=== PATIENT | male | born 1945 | race Two or more races ===

== ENCOUNTER 2018-11-28 01:17 | Inpatient (IN) | payer OTHER, SELFPAY ==
[~2018-11-28] VITALS: Ht 170.2 cm; Wt 107.2 kg
[2018-11-28 01:48] LABS: BASOPHILS # (AUTO) 0.15 x10^3/uL (0-0.1); BASOPHILS % (AUTO) 1 % (0-1); EOSINOPHILS # (AUTO) 0.77 x10^3/uL (0-0.4); EOSINOPHILS % (AUTO) 7 % (1-7); LYMPHOCYTES # (AUTO) 2.44 x10^3/uL (1-3.4); LYMPHOCYTES % (AUTO) 21 % (22-44); MD NO; MEAN CORPUSCULAR HEMOGLOBIN 32.6 pg (27.5-34.5); MEAN CORPUSCULAR HGB CONC 33.2 g/dL (33.2-36.2); MEAN CORPUSCULAR VOLUME 98.2 fL (81-97); MEAN PLATELET VOLUME 7.9 fL (7.4-10.4); MONOCYTES # (AUTO) 1.19 x10^3/uL (0.2-0.8); MONOCYTES % (AUTO) 10 % (2-9); NEUTROPHILS # (AUTO) 7.17 x10^3/uL (1.8-6.8); NEUTROPHILS % (AUTO) 61 % (42-75); PLATELET COUNT 203 x10^3/uL (130-400); RED BLOOD COUNT 4.82 x10^6/uL (4.38-5.82); RED CELL DISTRIBUTION WIDTH 15.3 % (9.4-14.8)
[2018-11-28] MEDS ORDERED: METO50TA82 PO (01:53)
[2018-11-28] MEDS ORDERED: GLIP5TAB10 PO (01:53)
[2018-11-28] MEDS ORDERED: ALLO300T PO (01:53)
[2018-11-28] MEDS ORDERED: AMIO100T4 PO (01:53)
[2018-11-28] MEDS ORDERED: FURO40TA6 PO (01:53)
[2018-11-28 01:59] LABS: ALANINE AMINOTRANSFERASE 37 U/L (12-78); ALBUMIN 3.9 g/dL (3.4-5.0); ANION GAP 8 mmol/L (5-15); CALCIUM 8.9 mg/dL (8.5-10.1); CHLORIDE 99 mmol/L (98-107); CREATININE 3.57 mg/dL (0.7-1.3)
[2018-11-28 02:04] LABS: ALKALINE PHOSPHATASE 55 U/L (45-117); BILIRUBIN,TOTAL 0.6 mg/dL (0.2-1.0); TOTAL PROTEIN 7.9 g/dL (6.4-8.2)
[2018-11-28 02:05] LABS: TROPONIN I 0.192 ng/mL (0.000-0.045)
--- NOTE | 2018-11-28 02:18 | NUR ---
PT HERE FOR BRADICARDIA AND SOB. PT UNABLE TO LAY DOWN X 2 DAYS HR BETWEEN 33-48. BP AND OTHER VSS. MD AWARE OF HR. PT IN NAD. FAMILY AT BEDSIDE. CALL LIGHT IN REACH
[2018-11-28 03:12] VITALS: BP 150/68
[2018-11-28] MEDS ORDERED: LACTATED RINGERS 1,000 ML IV SCH (05:00)
[2018-11-28] MEDS ORDERED: ONDANSETRON 2MG/ML, 2ML IVPush PRN (05:00)
[2018-11-28 05:16] LABS: HEMOGLOBIN A1C 9.7 % (4.2-6.3)
[2018-11-28 07:00] VITALS: BP 112/59
[2018-11-28] MEDS: INSULIN LISPRO 100 UNITS/ML, PEN SQ-INSULIN SCH ×4 (07:00→22:01)
[2018-11-28 07:59] LABS: INTERNATIONAL NORMALIZED RATIO 1.14 (0.93-1.1); PROTHROMBIN TIME 11.9 Seconds (9.6-11.5)
[2018-11-28 08:19] LABS: CHOL/HDL RATIO 4.8; CHOLESTEROL, TOTAL 121 mg/dL (140-239); HDL CHOL % 21 % (26-37); HDL CHOLESTEROL (DIRECT) 25 mg/dL (40-60); LDL CHOLESTEROL,CALCULATED 69 mg/dL (54-169); LDL/HDL RATIO 2.8 (0.5-3.0); TRIGLYCERIDES 133 mg/dL (50-200); TROPONIN I 0.183 ng/mL (0.000-0.045); VLDL CHOLESTEROL 27 mg/dL (0-25)
[2018-11-28] MEDS ORDERED: ATROPINE SYRINGE 0.1 MG/ML, 10ML ONE (11:36)
[2018-11-28 11:38] VITALS: BP 135/66
[2018-11-28] MEDS ORDERED: WARF7.5T46 PO (13:02)
[2018-11-28] MEDS ORDERED: HYDR-3341 PO (13:02)
[2018-11-28 14:08] VITALS: BP 164/83
[2018-11-28 14:38] LABS: TROPONIN I 0.178 ng/mL (0.000-0.045)
[2018-11-28] MEDS ORDERED: WARFARIN 5 MG TABLET PO-COUM SCH (18:00)
[2018-11-28 19:49] VITALS: BP 176/80
[2018-11-28 21:43] VITALS: BP 162/95
[2018-11-28] MEDS ORDERED: AMIO200T42 PO (21:55)
[2018-11-28] MEDS ORDERED: ALLO100T30 PO (21:55)
[2018-11-28] MEDS: DIPHENHYDRAMINE 25 MG CAPSULE PO PRN (23:14)
[2018-11-29] VITALS (7 sets, daily range): BP systolic 136–201; BP diastolic 60–93
[2018-11-29 06:42] LABS: INTERNATIONAL NORMALIZED RATIO 1.2 (0.93-1.1); PROTHROMBIN TIME 12.5 Seconds (9.6-11.5)
[2018-11-29] MEDS: INSULIN LISPRO 100 UNITS/ML, PEN SQ-INSULIN SCH ×4 (07:53→21:08)
[2018-11-29] MEDS ORDERED: REGADENOSON 0.4 MG/5 ML SYRINGE ONE (08:54)
[2018-11-29] MEDS: AMLODIPINE 5 MG TABLET PO SCH (15:02)
[2018-11-29] MEDS: hydrALAzine 20 MG/ML, 1ML IVPush PRN (16:33)
[2018-11-29] MEDS ORDERED: WARFARIN 7.5 MG TABLET PO-COUM ONE (18:00)
[2018-11-30] MEDS: DIPHENHYDRAMINE 25 MG CAPSULE PO PRN ×2 (01:24→20:23)
[2018-11-30 02:59] VITALS: BP 178/75
[2018-11-30 03:23] VITALS: BP 150/68
[2018-11-30 06:39] LABS: BASOPHILS # (AUTO) 0.06 x10^3/uL (0-0.1); BASOPHILS % (AUTO) 1 % (0-1); EOSINOPHILS # (AUTO) 0.77 x10^3/uL (0-0.4); EOSINOPHILS % (AUTO) 9 % (1-7); LYMPHOCYTES # (AUTO) 1.77 x10^3/uL (1-3.4); LYMPHOCYTES % (AUTO) 20 % (22-44); MD NO; MEAN CORPUSCULAR HGB CONC 32.7 g/dL (33.2-36.2); MEAN CORPUSCULAR VOLUME 97.9 fL (81-97); MEAN PLATELET VOLUME 7.8 fL (7.4-10.4); MONOCYTES # (AUTO) 1.13 x10^3/uL (0.2-0.8); MONOCYTES % (AUTO) 13 % (2-9); NEUTROPHILS # (AUTO) 5.01 x10^3/uL (1.8-6.8); NEUTROPHILS % (AUTO) 57 % (42-75); PLATELET COUNT 174 x10^3/uL (130-400); RED BLOOD COUNT 4.49 x10^6/uL (4.38-5.82)
[2018-11-30 06:50] LABS: INTERNATIONAL NORMALIZED RATIO 1.22 (0.93-1.1); PROTHROMBIN TIME 12.7 Seconds (9.6-11.5)
[2018-11-30 06:55] LABS: ANION GAP 6 mmol/L (5-15); CALCIUM 8.5 mg/dL (8.5-10.1); CHLORIDE 106 mmol/L (98-107)
[2018-11-30 06:57] LABS: CREATININE 2.68 mg/dL (0.7-1.3)
[2018-11-30 07:00] VITALS: BP 169/81
[2018-11-30] MEDS: AMLODIPINE 5 MG TABLET PO SCH ×3 (08:07→20:23)
[2018-11-30] MEDS: INSULIN LISPRO 100 UNITS/ML, PEN SQ-INSULIN SCH ×4 (08:08→20:34)
[2018-11-30 14:10] VITALS: BP 167/79
[2018-11-30] MEDS ORDERED: SIMV40TA3 PO (14:24)
[2018-11-30] MEDS ORDERED: METO50TA6 PO (14:24)
[2018-11-30] MEDS ORDERED: WARFARIN 7.5 MG TABLET PO-COUM ONE (18:00)
[2018-11-30 19:40] VITALS: BP 159/79
[2018-11-30] MEDS: ACETAMINOPHEN 325 MG TABLET PO PRN (23:41)
[2018-12-01] VITALS (7 sets, daily range): BP systolic 130–171; BP diastolic 57–84
[2018-12-01 05:36] LABS: BASOPHILS # (AUTO) 0.06 x10^3/uL (0-0.1); BASOPHILS % (AUTO) 1 % (0-1); EOSINOPHILS # (AUTO) 0.86 x10^3/uL (0-0.4); EOSINOPHILS % (AUTO) 9 % (1-7); LYMPHOCYTES # (AUTO) 1.77 x10^3/uL (1-3.4); LYMPHOCYTES % (AUTO) 19 % (22-44); MD NO; MEAN CORPUSCULAR HEMOGLOBIN 32.4 pg (27.5-34.5); MEAN CORPUSCULAR HGB CONC 32.7 g/dL (33.2-36.2); MEAN CORPUSCULAR VOLUME 99.1 fL (81-97); MONOCYTES # (AUTO) 1.12 x10^3/uL (0.2-0.8); MONOCYTES % (AUTO) 12 % (2-9); NEUTROPHILS # (AUTO) 5.74 x10^3/uL (1.8-6.8); NEUTROPHILS % (AUTO) 60 % (42-75); PLATELET COUNT 177 x10^3/uL (130-400); RED BLOOD COUNT 4.45 x10^6/uL (4.38-5.82); RED CELL DISTRIBUTION WIDTH 15.2 % (9.4-14.8)
[2018-12-01 05:39] LABS: INTERNATIONAL NORMALIZED RATIO 1.42 (0.93-1.1); PROTHROMBIN TIME 14.7 Seconds (9.6-11.5)
[2018-12-01 05:45] LABS: ANION GAP 5 mmol/L (5-15); CALCIUM 8.7 mg/dL (8.5-10.1); CHLORIDE 107 mmol/L (98-107); CREATININE 2.45 mg/dL (0.7-1.3)
[2018-12-01] MEDS: hydrALAzine 20 MG/ML, 1ML IVPush PRN (07:49)
[2018-12-01] MEDS: INSULIN LISPRO 100 UNITS/ML, PEN SQ-INSULIN SCH ×4 (07:49→21:00)
[2018-12-01] MEDS: AMLODIPINE 5 MG TABLET PO SCH ×2 (07:49→21:32)
[2018-12-01] MEDS ORDERED: NPH,100V SQ (10:01)
[2018-12-01] MEDS ORDERED: DOCUSATE 100 MG CAPSULE ONE (11:29)
[2018-12-01] MEDS ORDERED: LACTULOSE 20 GM/30 ML UDC ONE (11:30)
[2018-12-01] MEDS ORDERED: BISACODYL 10 MG SUPP PR PRN (11:30)
[2018-12-01] MEDS ORDERED: LACTULOSE 20 GM/30 ML UDC PO PRN (11:30)
[2018-12-01] MEDS: DOCUSATE 100 MG CAPSULE PO SCH (11:35)
[2018-12-01] MEDS ORDERED: WARFARIN 7.5 MG TABLET PO-COUM ONE (18:00)
[2018-12-01] MEDS: SENNA/DOCUSATE TABLET PO SCH (21:32)
[2018-12-01] MEDS: DIPHENHYDRAMINE 25 MG CAPSULE PO PRN (21:48)
[2018-12-02] MEDS: ACETAMINOPHEN 325 MG TABLET PO PRN ×3 (00:02→22:18)
[2018-12-02 02:21] VITALS: BP 141/68
[2018-12-02 05:37] LABS: BASOPHILS # (AUTO) 0.03 x10^3/uL (0-0.1); BASOPHILS % (AUTO) 0 % (0-1); EOSINOPHILS # (AUTO) 0.82 x10^3/uL (0-0.4); EOSINOPHILS % (AUTO) 8 % (1-7); LYMPHOCYTES # (AUTO) 1.79 x10^3/uL (1-3.4); LYMPHOCYTES % (AUTO) 16 % (22-44); MD NO; MEAN CORPUSCULAR HEMOGLOBIN 32.4 pg (27.5-34.5); MEAN CORPUSCULAR HGB CONC 32.7 g/dL (33.2-36.2); MEAN CORPUSCULAR VOLUME 99.1 fL (81-97); MONOCYTES # (AUTO) 1.16 x10^3/uL (0.2-0.8); MONOCYTES % (AUTO) 11 % (2-9); NEUTROPHILS # (AUTO) 7.15 x10^3/uL (1.8-6.8); NEUTROPHILS % (AUTO) 65 % (42-75); PLATELET COUNT 160 x10^3/uL (130-400); RED BLOOD COUNT 4.68 x10^6/uL (4.38-5.82); RED CELL DISTRIBUTION WIDTH 15.5 % (9.4-14.8)
[2018-12-02 05:39] LABS: INTERNATIONAL NORMALIZED RATIO 1.68 (0.93-1.1); PROTHROMBIN TIME 17.3 Seconds (9.6-11.5)
[2018-12-02 05:54] LABS: ANION GAP 6 mmol/L (5-15); CHLORIDE 109 mmol/L (98-107)
[2018-12-02 05:55] LABS: CREATININE 2.38 mg/dL (0.7-1.3)
[2018-12-02] MEDS: INSULIN LISPRO 100 UNITS/ML, PEN SQ-INSULIN SCH ×4 (07:00→20:45)
[2018-12-02 08:15] VITALS: BP 151/71
[2018-12-02] MEDS: DOCUSATE 100 MG CAPSULE PO SCH (09:21)
[2018-12-02] MEDS: AMLODIPINE 5 MG TABLET PO SCH ×2 (09:22→20:37)
[2018-12-02] MEDS: METOPROLOL SUCCINATE 25 MG TAB.ER.24H PO SCH (11:28)
[2018-12-02 12:40] VITALS: BP 154/77
[2018-12-02] MEDS ORDERED: WARFARIN 7.5 MG TABLET PO-COUM ONE (18:00)
[2018-12-02 19:44] VITALS: BP 137/69
[2018-12-02] MEDS: SENNA/DOCUSATE TABLET PO SCH (20:37)
[2018-12-02] MEDS: DIPHENHYDRAMINE 25 MG CAPSULE PO PRN (22:18)
[2018-12-03 01:20] VITALS: BP 142/60
[2018-12-03] MEDS: ACETAMINOPHEN 325 MG TABLET PO PRN ×3 (04:02→20:44)
[2018-12-03] MEDS: METOPROLOL SUCCINATE 25 MG TAB.ER.24H PO SCH (05:33)
[2018-12-03 06:00] LABS: BASOPHILS # (AUTO) 0.04 x10^3/uL (0-0.1); BASOPHILS % (AUTO) 0 % (0-1); EOSINOPHILS # (AUTO) 0.74 x10^3/uL (0-0.4); EOSINOPHILS % (AUTO) 6 % (1-7); LYMPHOCYTES # (AUTO) 1.73 x10^3/uL (1-3.4); LYMPHOCYTES % (AUTO) 14 % (22-44); MD NO; MEAN CORPUSCULAR HEMOGLOBIN 32.5 pg (27.5-34.5); MEAN CORPUSCULAR HGB CONC 32.7 g/dL (33.2-36.2); MEAN CORPUSCULAR VOLUME 99.4 fL (81-97); MEAN PLATELET VOLUME 7.7 fL (7.4-10.4); MONOCYTES # (AUTO) 1.33 x10^3/uL (0.2-0.8); MONOCYTES % (AUTO) 11 % (2-9); NEUTROPHILS # (AUTO) 8.59 x10^3/uL (1.8-6.8); NEUTROPHILS % (AUTO) 69 % (42-75); PLATELET COUNT 168 x10^3/uL (130-400); RED BLOOD COUNT 4.41 x10^6/uL (4.38-5.82); RED CELL DISTRIBUTION WIDTH 15.6 % (9.4-14.8)
[2018-12-03 06:04] LABS: INTERNATIONAL NORMALIZED RATIO 1.8 (0.93-1.1); PROTHROMBIN TIME 18.5 Seconds (9.6-11.5)
[2018-12-03 06:23] LABS: CALCIUM 8.7 mg/dL (8.5-10.1); CHLORIDE 107 mmol/L (98-107)
[2018-12-03 06:24] LABS: ANION GAP 5 mmol/L (5-15); CREATININE 2.73 mg/dL (0.7-1.3)
[2018-12-03] MEDS: INSULIN LISPRO 100 UNITS/ML, PEN SQ-INSULIN SCH ×4 (07:00→20:47)
[2018-12-03] MEDS: DOCUSATE 100 MG CAPSULE PO SCH (08:51)
[2018-12-03] MEDS: AMLODIPINE 5 MG TABLET PO SCH ×2 (08:51→20:40)
[2018-12-03 09:18] VITALS: BP 133/74
[2018-12-03 14:40] VITALS: BP_SYST 149; BP_SYST 156; BP_DIAS 69; BP_DIAS 77
[2018-12-03] MEDS ORDERED: WARFARIN 7.5 MG TABLET PO-COUM ONE (18:00)
[2018-12-03 19:56] VITALS: BP 136/73
[2018-12-04 00:45] VITALS: BP 141/76
[2018-12-04] MEDS: METOPROLOL SUCCINATE 25 MG TAB.ER.24H PO SCH (05:06)
[2018-12-04] MEDS: ACETAMINOPHEN 325 MG TABLET PO PRN (05:14)
[2018-12-04 05:46] LABS: ANION GAP 8 mmol/L (5-15); CALCIUM 8.6 mg/dL (8.5-10.1); CHLORIDE 107 mmol/L (98-107); CREATININE 2.47 mg/dL (0.7-1.3)
[2018-12-04 05:52] LABS: INTERNATIONAL NORMALIZED RATIO 2.27 (0.93-1.1); PROTHROMBIN TIME 23.1 Seconds (9.6-11.5)
[2018-12-04] MEDS ORDERED: METO25TA91 PO (07:26)
[2018-12-04 08:00] VITALS: BP 143/72
[2018-12-04] MEDS: DOCUSATE 100 MG CAPSULE PO SCH (08:23)
[2018-12-04] MEDS: AMLODIPINE 5 MG TABLET PO SCH (08:24)
[2018-12-04] MEDS: INSULIN LISPRO 100 UNITS/ML, PEN SQ-INSULIN SCH (08:24)
[2018-12-04] MEDS ORDERED: WARFARIN 3 MG TABLET PO-COUM SCH (18:00)
== END 2018-12-04 09:30 | disposition home or self-care (01) | DRG 683 ==
LOC: ED 02:21 → EDIP 02:29 → 5SO 03:02 → DCLOUNGE 12-04 09:06
PROVIDERS: ADMIT Family Medicine; ATTEND Family Medicine
DX: N17.9 Acute kidney failure, unspecified (principal); D68.69 Other thrombophilia; I13.0 Hypertensive heart and chronic kidney disease with heart failure and stage 1 through stage 4 chronic kidney disease, or unspecified chronic kidney disease; I50.42 Chronic combined systolic (congestive) and diastolic (congestive) heart failure; I42.9 Cardiomyopathy, unspecified; I49.5 Sick sinus syndrome; M10.9 Gout, unspecified; E78.5 Hyperlipidemia, unspecified; E03.4 Atrophy of thyroid (acquired); E11.22 Type 2 diabetes mellitus with diabetic chronic kidney disease; E11.65 Type 2 diabetes mellitus with hyperglycemia; E66.9 Obesity, unspecified; Z68.37 Body mass index [BMI] 37.0-37.9, adult; I48.91 Unspecified atrial fibrillation; N18.9 Chronic kidney disease, unspecified; Z79.01 Long term (current) use of anticoagulants; Z79.899 Other long term (current) drug therapy; Z79.4 Long term (current) use of insulin; Z83.3 Family history of diabetes mellitus; Z87.891 Personal history of nicotine dependence
CPT/HCPCS: 36415; 71045; 78452; 80048; 80053; 80061; 82962; 83036; 83880; 84439; 84443; 84481; 84484; 84550; 85025; 85610; 93005; 93017; 93306; G0378; J2785; A9502; C9898; J0360; J1815; J7120; Q0163